=== PATIENT | female | born 2000 | race Asian ===

== ENCOUNTER → 2020-11-23 12:37 | Outpatient (CLI) | payer BC, SELFPAY ==
[2020-11-23 15:13] LABS: COVID19 -Nasal RAPID Negative (Negative)
== END ==
PROVIDERS: Visit Provider Physician Assistant
DX: Z20.822 Contact with and (suspected) exposure to COVID-19 (principal); R05 Cough; R09.81 Nasal congestion
CPT/HCPCS: 87635